=== PATIENT | female | born 1955 | race Caucasian/White ===

== ENCOUNTER 2019-03-22 08:00 | Outpatient (CLI) | payer BC | END 2019-03-22 23:59 | disposition home or self-care (01) | LOC: D.MAMMO 08:00 | PROVIDERS: ATTEND Family Medicine | DX: Z12.31 Encounter for screening mammogram for malignant neoplasm of breast (principal) ==

== ENCOUNTER 2019-11-12 06:10 | Day surgery (SDC) | payer BC ==
[2019-11-10 13:03] LABS: BASOPHILS 0.4 % (0-2); EOSINOPHILS 0.7 % (0-7); HEMATOCRIT 38.2 % (36.0-48.0); HEMOGLOBIN 12.9 g/dL (12-16); IMMATURE GRANULOCYTES 0.3 % (0-5); LYMPHOCYTES 11.8 % (15-50); MCH 32.7 pg (26.0-34.0); MCHC 33.8 g/dL (31.0-37.0); MCV 96.7 fL (80.0-100.0); MEAN PLATELET VOLUME 9.2 fL (7.4-10.4); NEUTROPHILS 78.8 % (40-80); PLATELET COUNT 313 10x3/uL (130-400); RBC 3.95 10x6/uL (4.00-5.40); RDW 13.1 % (11.5-14.5); WBC 10.3 10x3/uL (4.8-10.8)
[2019-11-10 13:25] LABS: ANION GAP 13.9 mmol/L (8-16); CALCIUM 9.1 mg/dL (8.5-10.1); CARBON DIOXIDE 29.4 mmol/L (21.0-32.0); CREATININE - SERUM 1.1 mg/dL (0.6-1.3); POTASSIUM - SERUM 3.3 mmol/L (3.5-5.1)
[~2019-11-12] VITALS: Ht 160 cm; Wt 76.2 kg
--- NOTE | ~2019-11-12 | OP ---
PATIENT NAME: LILIA RESTREPO MEDICAL RECORD: [id number] :53 LOCATION:D.OPS ADMISSION DATE: SURGEON: STIVEN REDDY MD DATE OF OPERATION: 11/12/2019 PREOPERATIVE DIAGNOSES: 1. Sebaceous cyst of the right breast. 2. Hypertension. 3. Hyperlipidemia. POSTOPERATIVE DIAGNOSES: 1. Sebaceous cyst of the right breast. 2. Hypertension. 3. Hyperlipidemia. PROCEDURE: Excision of 1 cm right breast sebaceous cyst. SURGEON: Stiven Reddy MD REPORT OF PROCEDURE: The patient's right breast was prepped and draped in sterile fashion. On the medial and inferior aspect of the right breast, there is an area of indurated tissue. An ovoid incision was made around this and using electrocautery came through the subcutaneous tissue. We did encounter this cystic pocket and ended up coming around the entire pocket and completely excising this cystic tissue. The surrounding tissue was normal appearing fatty tissue with no inflammatory changes. I never encountered any purulence. We irrigated out the wound with normal saline. The subcutaneous tissues were reapproximated with interrupted 3-0 Vicryl and then infused with 10 mL of 0.25% Marcaine with epinephrine. The skin was closed with running subcutaneous 5-0 Monocryl and dressed appropriately. COMPLICATIONS: None. CONDITION: Stable. ANESTHESIA: General endotracheal and local. BLOOD LOSS: Minimal. TRANSINT:[id number] Voice Confirmation ID: [id number] DOCUMENT ID: [id number] STIVEN REDDY MD CC: BEAR KAHN MD and BENIGNO KNIGHT [id number] DICTATION DATE: 11/12/19947 VENTILATED RIB FITTER: 11/12/192027 [facility] 11/12/19 [facility] [address] [place] [address]
[~2019-11-12 06:10] MED LIST: BAYER CHEWABLE81 MG PO; COZAAR100 MG PO; DILTIAZEM 24HR240 M4 PO; FISH OIL 1,0001 CA1 PO; FLUTICASONE PRO16 GM NASAL; LIPITOR40 MG PO; LOSARTAN-HCTZ1 EAC1 PO; OMEPRAZOLE20 M1 PO; PAXIL30 MG PO; PROBIOTIC250 MG PO; TIROSINT112 MCG PO; [UNRECOGNIZED DRUG - OTHER] PO
[2019-11-12 07:04] VITALS: BP 165/97; Ht 160 cm; Wt 76.2 kg
--- NOTE | 2019-11-12 11:31 | NUR ---
1129-VSS. NO DISTRESS. DENIES PAIN. DRESSING CDI. NO N/V, TOLERATED JELLO AND WATER. REVIEWED POST OP INSTRUCTIONS VERBALIZED UNDERSTANDING. AT BEDSIDE AND VERBALIZED UNDERSTANDING WELL
--- NOTE | 2019-11-12 11:33 | NUR ---
1133- ESCORTED OUT VIA W/C BY STAFF WITH SPOUSE AWAITING TO DRIVE HOME.
== END 2019-11-12 11:33 | disposition home or self-care (01) ==
LOC: D.OPS 06:10 → D.PAN 08:15 → D.OPS 08:30 → D.PAN 09:00 → D.OPS 09:00
PROVIDERS: ATTEND Surgery
DX: N60.81 Other benign mammary dysplasias of right breast (principal); I10 Essential (primary) hypertension; E78.5 Hyperlipidemia, unspecified

== ENCOUNTER 2020-08-13 14:10 | Emergency (ER) | payer BC ==
[~2020-08-13] VITALS: Ht 160 cm; Wt 77.3 kg
[2020-08-13 14:16] VITALS: Ht 160 cm; Wt 77.3 kg
[2020-08-13 14:49] VITALS: BP 170/102
== END 2020-08-13 14:50 | disposition home or self-care (01) ==
LOC: D.ER 14:10
DX: I10 Essential (primary) hypertension (principal); K21.9 Gastro-esophageal reflux disease without esophagitis; E03.9 Hypothyroidism, unspecified